=== PATIENT | female | born 1970 | race Caucasian/White ===

== ENCOUNTER → 2017-01-25 | Outpatient (CLI) | payer MEDICAID ==
[~2017-01-25] MED LIST: BUSP10TA PO; ESCI20TA10 PO; HYDR-3240 PO; HYDR25TA6 PO; LAMO200T5 PO; LORA1TAB PO; ZOLP5TAB6 PO
== END | disposition home or self-care (01) ==
LOC: CARD 14:24
PROVIDERS: ATTEND Allergy & Immunology Allergy
DX: J44.9 Chronic obstructive pulmonary disease, unspecified (principal); J45.31 Mild persistent asthma with (acute) exacerbation
CPT/HCPCS: 94060; 94726; 94729

== ENCOUNTER 2017-05-19 11:32 | Emergency (ER) | payer MEDICAID ==
[~2017-05-19] VITALS: Ht 170.2 cm; Wt 90.0 kg
[2017-05-19 11:43] VITALS: BP 162/79
[2017-05-19] MEDS ORDERED: LURA20TA PO (12:26)
[2017-05-19 13:35] LABS: BASOPHILS % (AUTO) 0 % (0-1); EOSINOPHILS # (AUTO) 0.05 x10^3/uL (0-0.4); EOSINOPHILS % (AUTO) 0 % (1-7); LYMPHOCYTES # (AUTO) 2.51 x10^3/uL (1-3.4); LYMPHOCYTES % (AUTO) 24 % (22-44); MD NO; MEAN CORPUSCULAR HEMOGLOBIN 33.1 pg (27.0-34.8); MEAN CORPUSCULAR HGB CONC 34.5 g/dL (32.4-35.8); MEAN CORPUSCULAR VOLUME 95.9 fL (80-100); MEAN PLATELET VOLUME 7.8 fL (7.4-10.4); MONOCYTES % (AUTO) 8 % (2-9); NEUTROPHILS # (AUTO) 7.12 x10^3/uL (1.8-6.8); NEUTROPHILS % (AUTO) 68 % (42-75); PLATELET COUNT 292 x10^3/uL (130-400); RED BLOOD COUNT 4.47 x10^6/uL (3.82-5.3); RED CELL DISTRIBUTION WIDTH 13.1 % (9.6-15.2)
[2017-05-19 13:47] LABS: ALBUMIN 3.6 g/dL (3.4-5.0); ANION GAP 9 mmol/L (5-15); CALCIUM 8.8 mg/dL (8.5-10.1); CHLORIDE 104 mmol/L (98-107)
== END 2017-05-19 14:24 | disposition home or self-care (01) ==
LOC: ED 13:39
DX: G24.09 Other drug induced dystonia (principal); T42.4X5A Adverse effect of benzodiazepines, initial encounter; I10 Essential (primary) hypertension; F31.9 Bipolar disorder, unspecified; F41.9 Anxiety disorder, unspecified; J45.909 Unspecified asthma, uncomplicated; Y92.89 Other specified places as the place of occurrence of the external cause
CPT/HCPCS: 36415; 70450; 80048; 82040; 85025; 93005

== ENCOUNTER 2018-05-31 21:40 | Inpatient (IN) | payer MEDICAID ==
[~2018-05-31] VITALS: Ht 162.6 cm; Wt 109.7 kg
[~2018-05-31 21:40] MED LIST changes: +LURA20TA PO
--- NOTE | 2018-05-31 22:02 | NUR ---
PT BIB MOTHER. STATES FRIEND TODAY AND PT HAVING TOUGH TIME COPING. STATES DRINKING 6 BEERS AND TAKING A TOTAL OF 15 XANAX. MOTHER STATES PILL BOTTLE WAS NOT EMPTY AND PT DENIES SI TONIGHT. PT SLURRING WORDS AND SLUGGISH TO RESPOND TO QUESTIONS. PT IS A+Ox4. PUPILS SLUGGISH REACTION, BUT PERRLA. NEURO OTHERWISE INTACT. IV INITIATED AND ALL MONITORING APPLIED. VSS. CALL LIGHT WITHIN REACH. FAMILY AT BEDSIDE.
[2018-05-31 22:19] LABS: BASOPHILS # (AUTO) 0.05 x10^3/uL (0-0.1); BASOPHILS % (AUTO) 1 % (0-1); EOSINOPHILS # (AUTO) 0.38 x10^3/uL (0-0.4); EOSINOPHILS % (AUTO) 4 % (1-7); LYMPHOCYTES # (AUTO) 4.84 x10^3/uL (1-3.4); LYMPHOCYTES % (AUTO) 45 % (22-44); MD NO; MEAN CORPUSCULAR HEMOGLOBIN 32.5 pg (27.0-34.8); MEAN CORPUSCULAR HGB CONC 33.6 g/dL (32.4-35.8); MEAN CORPUSCULAR VOLUME 96.6 fL (80-100); MEAN PLATELET VOLUME 7.9 fL (7.4-10.4); MONOCYTES # (AUTO) 0.98 x10^3/uL (0.2-0.8); MONOCYTES % (AUTO) 9 % (2-9); NEUTROPHILS % (AUTO) 41 % (42-75); PLATELET COUNT 303 x10^3/uL (130-400); RED BLOOD COUNT 4.95 x10^6/uL (3.82-5.3); RED CELL DISTRIBUTION WIDTH 12.3 % (9.6-15.2)
[2018-05-31 22:31] LABS: ALANINE AMINOTRANSFERASE 51 U/L (12-78); ALBUMIN 3.6 g/dL (3.4-5.0); ANION GAP 9 mmol/L (5-15); CALCIUM 8.6 mg/dL (8.5-10.1); CHLORIDE 99 mmol/L (98-107); CREATININE 0.63 mg/dL (0.55-1.02); SALICYLATE LEVEL 1.8 mg/dL (2.8-20.0)
--- NOTE | 2018-05-31 22:34 | NUR ---
PT DESAT WHILE FALLING ASLEEP TO MID 80'S. PT PUT ON 2 L NC AND SAT TO 92-96%.
[2018-05-31 22:35] LABS: ALKALINE PHOSPHATASE 99 U/L (45-117); BILIRUBIN,TOTAL 0.3 mg/dL (0.2-1.0); TOTAL PROTEIN 8.2 g/dL (6.4-8.2)
[2018-05-31 22:36] LABS: ACETAMINOPHEN < 2 mcg/mL (10-30)
--- NOTE | 2018-05-31 23:55 | NUR ---
PT STATES DIFFICULTY FALLING ASLEEP AND "WOULD LIKE A SLEEP AID". MD NOTIFIED. NO NEW ORDERS. LIGHTS TURNED LOW AND COMFORT MEASURES APPLIED.
--- NOTE | 2018-06-01 00:10 | NUR ---
PT STATING SHE CANT SLEEP AND SHE WANTS A SLEEPING AID, AND SHE IS HAVING AN ANXIETY ATTACK AND NEEDS XANAX. MD NOTIFIED. NO NEW ORDERS FROM MD. PT NOTIFIED OF MD DECISION AND PT STATES "WHY NOT? I AM ON ALL THIS MONITORING EQUIPMENT. CANT I JUST HAVE 1?" PT EDUCATED ON RISK OF OD, PT STILL INSISTING ON WANTING MORE MEDICATION, XANAX IN PARTICULAR.
[2018-06-01] MEDS ORDERED: ALPR1TAB2 PO (00:18)
[2018-06-01] MEDS ORDERED: ONDANSETRON ODT 4 MG PO PRN ×2 (01:00→04:00)
[2018-06-01] MEDS ORDERED: ACETAMINOPHEN 325 MG TABLET PO PRN (01:00)
[2018-06-01 01:20] VITALS: BP 129/91
[2018-06-01 02:05] LABS: AMPHETAMINE SCREEN, URINE Negative (Negative); BARBITURATE SCREEN, URINE Negative (Negative); BENZODIAZEPINE SCREEN, URINE Positive (Negative); CANNABINOID SCREEN, URINE Negative (Negative); COCAINE SCREEN, URINE Negative (Negative); METHADONE SCREEN, URINE Negative (Negative); OPIATE SCREEN, URINE Negative (Negative)
[2018-06-01] MEDS ORDERED: MELATONIN 5 MG TABLET PO ONE (04:00)
[2018-06-01] MEDS ORDERED: ONDANSETRON 2MG/ML, 2ML IVPush PRN (04:00)
[2018-06-01] MEDS: ENOXAPARIN 40 MG/0.4 ML SQ SCH (04:11)
[2018-06-01 04:12] VITALS: BP 102/67
[2018-06-01] MEDS ORDERED: HYDROCHLOROTHIAZIDE 25 MG TABLET PO PRN (05:00)
[2018-06-01] MEDS: BUSPIRONE 10 MG TABLET PO SCH ×4 (06:00→22:38)
[2018-06-01 07:52] VITALS: BP 126/82
[2018-06-01] MEDS ORDERED: TEMPLATE NON-FORMULARY MED. (Escitalopram Oxalate** (Lexapro**) 20 MG) HOMEMEDPO SCH (09:00)
[2018-06-01] MEDS: ACETAMINOPHEN 325 MG TABLET PO PRN ×2 (12:00→22:39)
[2018-06-01 15:40] VITALS: BP 120/84
[2018-06-01] MEDS: PROPRANOLOL 40 MG TABLET PO SCH (18:36)
[2018-06-01 19:20] VITALS: BP 119/79
[2018-06-01] MEDS ORDERED: ESCI10TA PO (19:52)
[2018-06-01] MEDS ORDERED: MONT10TA9 PO (19:52)
[2018-06-01] MEDS ORDERED: LURA120T PO (19:52)
[2018-06-01] MEDS ORDERED: TRAZ50TA66 PO (19:52)
[2018-06-01] MEDS ORDERED: RANI150T4 PO (19:52)
[2018-06-01] MEDS ORDERED: LURA80TA PO (20:15)
[2018-06-01] MEDS ORDERED: ALBU18HF INH (20:19)
[2018-06-01] MEDS ORDERED: ESCITALOPRAM OXALATE 30 MG HOMEMEDPO SCH (21:00)
[2018-06-01] MEDS ORDERED: LATUDA 80 MG HOMEMEDPO SCH (21:00)
[2018-06-01] MEDS ORDERED: LURASIDONE 20 MG TABLET HOMEMEDPO SCH (21:00)
[2018-06-01] MEDS ORDERED: TRAZODONE 50MG TABLET PO SCH (21:00)
[2018-06-01] MEDS ORDERED: LURASIDONE PO SCH (21:00)
[2018-06-01] MEDS ORDERED: ESCITALOPRAM OXALATE 20 MG HOMEMEDPO SCH ×2 (21:13→22:30)
[2018-06-02 03:55] VITALS: BP 113/77
[2018-06-02] MEDS: ENOXAPARIN 40 MG/0.4 ML SQ SCH (03:59)
[2018-06-02] MEDS: PROPRANOLOL 40 MG TABLET PO SCH (05:06)
[2018-06-02 07:03] VITALS: BP 110/74
[2018-06-02] MEDS: BUSPIRONE 10 MG TABLET PO SCH (08:30)
[2018-06-02] MEDS ORDERED: FAMOTIDINE 20 MG TABLET PO SCH (09:00)
[2018-06-02] MEDS ORDERED: VENTOLIN HOMEMEDPO SCH (09:00)
[2018-06-02] MEDS ORDERED: MONTELUKAST 10 MG TABLET PO SCH (09:00)
[2018-06-02 15:08] VITALS: BP 114/80
== END 2018-06-02 15:59 | disposition home or self-care (01) | DRG 917 ==
LOC: ED 22:15 → EDIP 06-01 00:43 → 4WST 06-01 01:12
PROVIDERS: ADMIT Student in an Organized Health Care Education/Training Program; ATTEND Student in an Organized Health Care Education/Training Program
DX: T42.4X1A Poisoning by benzodiazepines, accidental (unintentional), initial encounter (principal); G92 Toxic encephalopathy; J44.9 Chronic obstructive pulmonary disease, unspecified; T51.92XA Toxic effect of unspecified alcohol, intentional self-harm, initial encounter; I25.10 Atherosclerotic heart disease of native coronary artery without angina pectoris; F41.0 Panic disorder [episodic paroxysmal anxiety]; E10.9 Type 1 diabetes mellitus without complications; F31.9 Bipolar disorder, unspecified; F41.1 Generalized anxiety disorder; I11.0 Hypertensive heart disease with heart failure; I50.9 Heart failure, unspecified; Z79.4 Long term (current) use of insulin; Z79.899 Other long term (current) drug therapy; Z90.5 Acquired absence of kidney; Y92.89 Other specified places as the place of occurrence of the external cause; Z88.1 Allergy status to other antibiotic agents; Z88.8 Allergy status to other drugs, medicaments and biological substances; Z83.3 Family history of diabetes mellitus; Z82.49 Family history of ischemic heart disease and other diseases of the circulatory system; Z84.89 Family history of other specified conditions; Z80.9 Family history of malignant neoplasm, unspecified
CPT/HCPCS: 36415; 80053; 80307; 80329; 84703; 85025; 93005; 99285; G0378; J1650; G0480

== ENCOUNTER 2018-08-04 12:07 | Inpatient (IN) | payer MEDICAID ==
[~2018-08-04] VITALS: Ht 165.1 cm; Wt 107.2 kg
[~2018-08-04 12:07] MED LIST changes: +ALBU18HF INH; +ALPR1TAB2 PO; +ESCI10TA PO; +LURA120T PO; +LURA80TA PO; +MONT10TA9 PO; +RANI150T4 PO; +TRAZ50TA66 PO
[2018-08-04] MEDS ORDERED: ONDANSETRON 2MG/ML, 2ML IVPush ONE (12:30)
[2018-08-04] MEDS ORDERED: SODIUM CHLORIDE FLUSH 10ML SYR IVF ONE (12:30)
[2018-08-04 12:48] LABS: MEAN CORPUSCULAR HEMOGLOBIN 32.4 pg (27.0-34.8); MEAN CORPUSCULAR HGB CONC 33.9 g/dL (32.4-35.8); MEAN CORPUSCULAR VOLUME 95.4 fL (80-100); MEAN PLATELET VOLUME 7.5 fL (7.4-10.4); PLATELET COUNT 401 x10^3/uL (130-400); RED BLOOD COUNT 4.73 x10^6/uL (3.82-5.3); RED CELL DISTRIBUTION WIDTH 12.9 % (9.6-15.2)
[2018-08-04] MEDS ORDERED: ONDANSETRON 2MG/ML, 2ML ONE (12:52)
[2018-08-04] MEDS ORDERED: HYDROmorphone 1 MG/ML, 1ML AMP ONE ×2 (12:52→14:38)
[2018-08-04] MEDS: HYDROmorphone 2 MG/ML, 1ML IVPush PRN ×2 (12:58→14:42)
[2018-08-04 13:01] LABS: ALBUMIN 3.3 g/dL (3.4-5.0); ANION GAP 5 mmol/L (5-15); CALCIUM 9.2 mg/dL (8.5-10.1); CHLORIDE 98 mmol/L (98-107); CREATININE 0.83 mg/dL (0.55-1.02)
[2018-08-04 13:09] LABS: BASOPHILS # (AUTO) 0.07 x10^3/uL (0-0.1); BASOPHILS % (AUTO) 0 % (0-1); EOSINOPHILS # (AUTO) 0.05 x10^3/uL (0-0.4); EOSINOPHILS % (AUTO) 0 % (1-7); LYMPHOCYTES # (AUTO) 1.86 x10^3/uL (1-3.4); LYMPHOCYTES % (AUTO) 11 % (22-44); MD SCAN; MONOCYTES # (AUTO) 1.02 x10^3/uL (0.2-0.8); MONOCYTES % (AUTO) 6 % (2-9); NEUTROPHILS # (AUTO) 14.14 x10^3/uL (1.8-6.8); NEUTROPHILS % (AUTO) 83 % (42-75)
[2018-08-04 13:28] LABS: CULTURE INDICATED? NO; MICROSCOPIC NOT IND
[2018-08-04] MEDS ORDERED: CEFTRIAXONE PMX 1GM/50ML 50 ML ONE (14:38)
[2018-08-04] MEDS ORDERED: OMNIPAQUE 350 MG/ML, 100ML BOTTLE ONE (14:47)
[2018-08-04] MEDS ORDERED: CEFTRIAXONE PMX 1GM/50ML 50 ML IV ONE (15:00)
[2018-08-04] MEDS ORDERED: METRONIDAZOLE PMX 500MG/100ML 100 ML IV ONE (15:00)
[2018-08-04] MEDS ORDERED: hydrALAzine 20 MG/ML, 1ML IVPush PRN (15:30)
[2018-08-04] MEDS ORDERED: LABETALOL 5 MG/ML SYRINGE IVPush PRN (15:30)
[2018-08-04] MEDS ORDERED: ACETAMINOPHEN 325 MG TABLET PO PRN (15:30)
[2018-08-04] MEDS ORDERED: BISACODYL 10 MG SUPP PR PRN (15:30)
[2018-08-04] MEDS ORDERED: ENALAPRILAT 1.25 MG/ML, 2ML IVPush PRN (15:30)
[2018-08-04] MEDS ORDERED: METRONIDAZOLE PMX 500MG/100ML 100 ML ONE (16:34)
[2018-08-04] MEDS ORDERED: ENOXAPARIN 40 MG/0.4 ML ONE (16:34)
[2018-08-04] MEDS: ENOXAPARIN 40 MG/0.4 ML SQ SCH (16:48)
[2018-08-04] MEDS ORDERED: HYDROcodone/APAP 5/325 TABLET ONE (17:34)
[2018-08-04] MEDS: HYDROcodone/APAP 5/325 TABLET PO PRN ×2 (17:37→21:54)
[2018-08-04] MEDS ORDERED: PIPERACILLIN/TAZO/PMX 3.375GM 50 ML ONE (19:04)
[2018-08-04] MEDS: PIPERACILLIN/TAZO/PMX 3.375GM 50 ML IV SCH ×2 (19:07→20:41)
--- NOTE | 2018-08-04 19:47 | NUR ---
PT PROVIDED WITH A CLEAR LIQUID MEAL TRAY.
[2018-08-04 21:15] VITALS: BP 108/74
[2018-08-04] MEDS: LURASIDONE 20 MG TABLET PO SCH (21:53)
[2018-08-04] MEDS: NS + 20MEQ KCL 1,000 ML IV SCH (21:53)
[2018-08-04] MEDS: ESCITALOPRAM 10MG TABLET PO SCH (21:54)
[2018-08-04] MEDS: FAMOTIDINE 20 MG TABLET PO SCH (21:54)
[2018-08-04] MEDS: BUSPIRONE 10 MG TABLET PO SCH (21:54)
[2018-08-04 22:43] LABS: CLOSTRIDIUM DIFFICILE ANTIGEN NEGATIVE; CLOSTRIDIUM DIFFICILE TOXIN NEGATIVE (Negative)
[2018-08-05 00:50] VITALS: BP 106/72
[2018-08-05] MEDS: HYDROcodone/APAP 5/325 TABLET PO PRN ×6 (02:11→23:57)
[2018-08-05] MEDS: IBUPROFEN 600 MG TABLET PO PRN ×3 (02:15→21:49)
[2018-08-05] MEDS: PIPERACILLIN/TAZO/PMX 3.375GM 50 ML IV SCH (03:17)
[2018-08-05 05:12] LABS: MEAN CORPUSCULAR HEMOGLOBIN 32.1 pg (27.0-34.8); MEAN CORPUSCULAR HGB CONC 33.6 g/dL (32.4-35.8); MEAN CORPUSCULAR VOLUME 95.5 fL (80-100); PLATELET COUNT 328 x10^3/uL (130-400); RED BLOOD COUNT 4.12 x10^6/uL (3.82-5.3)
[2018-08-05 05:17] LABS: ANION GAP 8 mmol/L (5-15); CALCIUM 8.2 mg/dL (8.5-10.1); CHLORIDE 98 mmol/L (98-107); CREATININE 0.65 mg/dL (0.55-1.02)
[2018-08-05 06:02] LABS: BASOPHILS # (AUTO) 0.03 x10^3/uL (0-0.1); BASOPHILS % (AUTO) 0 % (0-1); EOSINOPHILS # (AUTO) 0.05 x10^3/uL (0-0.4); EOSINOPHILS % (AUTO) 0 % (1-7); LYMPHOCYTES % (AUTO) 10 % (22-44); MD SCAN; MONOCYTES # (AUTO) 1.64 x10^3/uL (0.2-0.8); MONOCYTES % (AUTO) 9 % (2-9); NEUTROPHILS # (AUTO) 14.92 x10^3/uL (1.8-6.8); NEUTROPHILS % (AUTO) 81 % (42-75)
[2018-08-05] MEDS: NS + 20MEQ KCL 1,000 ML IV SCH ×2 (06:05→19:41)
[2018-08-05 08:02] VITALS: BP 94/60
[2018-08-05] MEDS: PIPERACILLIN/TAZO/PMX 4.5GM 100 ML IV SCH ×3 (09:38→20:49)
[2018-08-05] MEDS: BUSPIRONE 10 MG TABLET PO SCH ×2 (09:38→20:50)
[2018-08-05] MEDS: MONTELUKAST 10 MG TABLET PO SCH (09:39)
[2018-08-05] MEDS: FAMOTIDINE 20 MG TABLET PO SCH ×2 (09:39→20:50)
[2018-08-05] MEDS: ALPRazolam 1MG TAB PO SCH (09:39)
[2018-08-05] MEDS: HYDROCHLOROTHIAZIDE 25 MG TABLET PO SCH (09:39)
[2018-08-05] MEDS ORDERED: ALBUTEROL SULFATE 2.5 MG/3 ML NPPB SCH (11:00)
[2018-08-05 13:49] VITALS: BP 95/65
[2018-08-05] MEDS: ENOXAPARIN 40 MG/0.4 ML SQ SCH (15:42)
[2018-08-05] MEDS: LURASIDONE 20 MG TABLET PO SCH (20:50)
[2018-08-05] MEDS: ESCITALOPRAM 10MG TABLET PO SCH (20:50)
[2018-08-05] MEDS: BUDESONIDE 0.5 MG/2 ML INHA INH SCH (21:15)
[2018-08-05] MEDS: ALBUTEROL SULFATE 2.5 MG/3 ML NPPB SCH (21:15)
[2018-08-05 21:49] VITALS: BP 90/63
[2018-08-06] MEDS: ONDANSETRON 2MG/ML, 2ML IVPush PRN (00:01)
[2018-08-06] MEDS: PIPERACILLIN/TAZO/PMX 4.5GM 100 ML IV SCH ×5 (03:06→22:55)
[2018-08-06 03:08] VITALS: BP 90/67
[2018-08-06] MEDS: NS + 20MEQ KCL 1,000 ML IV SCH ×2 (04:14→13:46)
[2018-08-06] MEDS: HYDROcodone/APAP 5/325 TABLET PO PRN ×5 (05:19→22:19)
[2018-08-06 05:23] LABS: MEAN CORPUSCULAR HEMOGLOBIN 32.9 pg (27.0-34.8); MEAN CORPUSCULAR HGB CONC 33.8 g/dL (32.4-35.8); MEAN CORPUSCULAR VOLUME 97.4 fL (80-100); MEAN PLATELET VOLUME 7.9 fL (7.4-10.4); PLATELET COUNT 251 x10^3/uL (130-400); RED BLOOD COUNT 3.81 x10^6/uL (3.82-5.3); RED CELL DISTRIBUTION WIDTH 12.9 % (9.6-15.2)
[2018-08-06 05:26] LABS: ANION GAP 6 mmol/L (5-15); CALCIUM 8.2 mg/dL (8.5-10.1); CHLORIDE 103 mmol/L (98-107); CREATININE 0.62 mg/dL (0.55-1.02)
[2018-08-06 05:52] LABS: BASOPHILS # (AUTO) 0.02 x10^3/uL (0-0.1); BASOPHILS % (AUTO) 0 % (0-1); EOSINOPHILS # (AUTO) 0.05 x10^3/uL (0-0.4); EOSINOPHILS % (AUTO) 1 % (1-7); LYMPHOCYTES # (AUTO) 1.17 x10^3/uL (1-3.4); LYMPHOCYTES % (AUTO) 10 % (22-44); MD SCAN; MONOCYTES # (AUTO) 1.06 x10^3/uL (0.2-0.8); MONOCYTES % (AUTO) 9 % (2-9); NEUTROPHILS # (AUTO) 9.08 x10^3/uL (1.8-6.8); NEUTROPHILS % (AUTO) 80 % (42-75)
[2018-08-06 07:21] VITALS: BP 101/70
[2018-08-06] MEDS: BUDESONIDE 0.5 MG/2 ML INHA INH SCH ×2 (08:56→21:50)
[2018-08-06] MEDS: ALBUTEROL SULFATE 2.5 MG/3 ML NPPB SCH ×2 (08:56→21:50)
[2018-08-06] MEDS: ALPRazolam 1MG TAB PO SCH (09:27)
[2018-08-06] MEDS: FAMOTIDINE 20 MG TABLET PO SCH ×2 (09:27→20:59)
[2018-08-06] MEDS: BUSPIRONE 10 MG TABLET PO SCH ×2 (09:27→20:59)
[2018-08-06] MEDS: MONTELUKAST 10 MG TABLET PO SCH (09:27)
[2018-08-06] MEDS: HYDROCHLOROTHIAZIDE 25 MG TABLET PO SCH (09:27)
[2018-08-06 13:44] VITALS: BP 87/64
[2018-08-06] MEDS: ENOXAPARIN 40 MG/0.4 ML SQ SCH (15:05)
[2018-08-06] MEDS: ESCITALOPRAM 10MG TABLET PO SCH (20:59)
[2018-08-06] MEDS: LURASIDONE 20 MG TABLET PO SCH (21:00)
[2018-08-06 21:11] VITALS: BP 104/80
[2018-08-07] MEDS: HYDROcodone/APAP 5/325 TABLET PO PRN ×6 (02:33→22:53)
[2018-08-07 02:35] VITALS: BP 94/62
[2018-08-07] MEDS: NS + 20MEQ KCL 1,000 ML IV SCH ×3 (04:27→22:54)
[2018-08-07] MEDS: PIPERACILLIN/TAZO/PMX 4.5GM 100 ML IV SCH ×4 (04:27→22:54)
[2018-08-07 05:12] LABS: BASOPHILS % (AUTO) 0 % (0-1); EOSINOPHILS # (AUTO) 0.06 x10^3/uL (0-0.4); EOSINOPHILS % (AUTO) 1 % (1-7); LYMPHOCYTES # (AUTO) 2.31 x10^3/uL (1-3.4); LYMPHOCYTES % (AUTO) 36 % (22-44); MD NO; MEAN CORPUSCULAR HGB CONC 33.2 g/dL (32.4-35.8); MEAN CORPUSCULAR VOLUME 96.3 fL (80-100); MEAN PLATELET VOLUME 7.9 fL (7.4-10.4); MONOCYTES # (AUTO) 0.89 x10^3/uL (0.2-0.8); MONOCYTES % (AUTO) 14 % (2-9); NEUTROPHILS # (AUTO) 3.17 x10^3/uL (1.8-6.8); NEUTROPHILS % (AUTO) 49 % (42-75); PLATELET COUNT 280 x10^3/uL (130-400); RED BLOOD COUNT 3.53 x10^6/uL (3.82-5.3); RED CELL DISTRIBUTION WIDTH 12.9 % (9.6-15.2)
[2018-08-07 05:14] LABS: ANION GAP 6 mmol/L (5-15); CALCIUM 8.1 mg/dL (8.5-10.1); CHLORIDE 103 mmol/L (98-107); CREATININE 0.57 mg/dL (0.55-1.02)
[2018-08-07 08:40] VITALS: BP 118/84
[2018-08-07] MEDS: ALBUTEROL SULFATE 2.5 MG/3 ML NPPB SCH ×2 (08:48→20:51)
[2018-08-07] MEDS: BUDESONIDE 0.5 MG/2 ML INHA INH SCH ×2 (08:48→20:51)
[2018-08-07] MEDS: HYDROCHLOROTHIAZIDE 25 MG TABLET PO SCH (09:02)
[2018-08-07] MEDS: POTASSIUM CHLORIDE 20 MEQ TAB.ER.PRT PO SCH ×2 (09:02→17:14)
[2018-08-07] MEDS: MONTELUKAST 10 MG TABLET PO SCH (09:02)
[2018-08-07] MEDS: ALPRazolam 1MG TAB PO SCH (09:02)
[2018-08-07] MEDS: BUSPIRONE 10 MG TABLET PO SCH ×2 (09:03→21:36)
[2018-08-07] MEDS: FAMOTIDINE 20 MG TABLET PO SCH ×2 (09:03→21:34)
[2018-08-07 13:49] VITALS: BP 126/82
[2018-08-07] MEDS: ENOXAPARIN 40 MG/0.4 ML SQ SCH (15:30)
[2018-08-07 20:54] VITALS: BP 110/73
[2018-08-07] MEDS: ESCITALOPRAM 10MG TABLET PO SCH (21:30)
[2018-08-07] MEDS: LURASIDONE 20 MG TABLET PO SCH (21:31)
[2018-08-08 02:22] VITALS: BP 108/69
[2018-08-08] MEDS: HYDROcodone/APAP 5/325 TABLET PO PRN ×5 (02:59→19:59)
[2018-08-08] MEDS: PIPERACILLIN/TAZO/PMX 4.5GM 100 ML IV SCH ×4 (05:22→22:06)
[2018-08-08 06:04] LABS: BASOPHILS # (AUTO) 0.01 x10^3/uL (0-0.1); BASOPHILS % (AUTO) 0 % (0-1); EOSINOPHILS # (AUTO) 0.08 x10^3/uL (0-0.4); EOSINOPHILS % (AUTO) 2 % (1-7); LYMPHOCYTES # (AUTO) 1.99 x10^3/uL (1-3.4); LYMPHOCYTES % (AUTO) 38 % (22-44); MD NO; MEAN CORPUSCULAR HEMOGLOBIN 32.9 pg (27.0-34.8); MEAN CORPUSCULAR HGB CONC 34.1 g/dL (32.4-35.8); MEAN CORPUSCULAR VOLUME 96.2 fL (80-100); MONOCYTES # (AUTO) 0.65 x10^3/uL (0.2-0.8); MONOCYTES % (AUTO) 12 % (2-9); NEUTROPHILS # (AUTO) 2.56 x10^3/uL (1.8-6.8); NEUTROPHILS % (AUTO) 48 % (42-75); PLATELET COUNT 321 x10^3/uL (130-400); RED BLOOD COUNT 3.57 x10^6/uL (3.82-5.3); RED CELL DISTRIBUTION WIDTH 13.3 % (9.6-15.2)
[2018-08-08 06:14] LABS: ANION GAP 7 mmol/L (5-15); CALCIUM 8.5 mg/dL (8.5-10.1); CHLORIDE 108 mmol/L (98-107); CREATININE 0.52 mg/dL (0.55-1.02)
[2018-08-08] MEDS: NS + 20MEQ KCL 1,000 ML IV SCH ×3 (06:53→22:06)
[2018-08-08] MEDS: MONTELUKAST 10 MG TABLET PO SCH (08:50)
[2018-08-08] MEDS: HYDROCHLOROTHIAZIDE 25 MG TABLET PO SCH (08:50)
[2018-08-08] MEDS: BUSPIRONE 10 MG TABLET PO SCH ×2 (08:50→22:07)
[2018-08-08] MEDS: FAMOTIDINE 20 MG TABLET PO SCH ×2 (08:50→22:07)
[2018-08-08] MEDS: POTASSIUM CHLORIDE 20 MEQ TAB.ER.PRT PO SCH ×2 (08:50→17:24)
[2018-08-08] MEDS: ALPRazolam 1MG TAB PO SCH (08:50)
[2018-08-08] MEDS: BUDESONIDE 0.5 MG/2 ML INHA INH SCH ×2 (09:00→21:05)
[2018-08-08] MEDS: ALBUTEROL SULFATE 2.5 MG/3 ML NPPB SCH ×2 (09:00→21:05)
[2018-08-08 09:28] VITALS: BP 103/69
[2018-08-08] MEDS: ENOXAPARIN 40 MG/0.4 ML SQ SCH (15:36)
[2018-08-08 17:58] VITALS: BP 126/85
[2018-08-08 20:06] VITALS: BP 132/85
[2018-08-08] MEDS: ESCITALOPRAM 10MG TABLET PO SCH (22:07)
[2018-08-08] MEDS: LURASIDONE 20 MG TABLET PO SCH (22:07)
[2018-08-08] MEDS: ONDANSETRON 2MG/ML, 2ML IVPush PRN (23:37)
[2018-08-09] MEDS: HYDROcodone/APAP 5/325 TABLET PO PRN ×6 (00:10→21:46)
[2018-08-09 01:54] VITALS: BP_SYST 102
[2018-08-09] MEDS: NS + 20MEQ KCL 1,000 ML IV SCH (05:20)
[2018-08-09] MEDS: PIPERACILLIN/TAZO/PMX 4.5GM 100 ML IV SCH ×2 (05:20→11:32)
[2018-08-09 05:56] LABS: BASOPHILS # (AUTO) 0.03 x10^3/uL (0-0.1); BASOPHILS % (AUTO) 1 % (0-1); EOSINOPHILS % (AUTO) 2 % (1-7); LYMPHOCYTES # (AUTO) 1.91 x10^3/uL (1-3.4); LYMPHOCYTES % (AUTO) 33 % (22-44); MD NO; MEAN CORPUSCULAR HEMOGLOBIN 32.8 pg (27.0-34.8); MEAN CORPUSCULAR HGB CONC 33.8 g/dL (32.4-35.8); MONOCYTES # (AUTO) 0.62 x10^3/uL (0.2-0.8); MONOCYTES % (AUTO) 11 % (2-9); NEUTROPHILS # (AUTO) 3.07 x10^3/uL (1.8-6.8); NEUTROPHILS % (AUTO) 54 % (42-75); PLATELET COUNT 325 x10^3/uL (130-400); RED BLOOD COUNT 3.47 x10^6/uL (3.82-5.3); RED CELL DISTRIBUTION WIDTH 13.1 % (9.6-15.2)
[2018-08-09] MEDS: BUDESONIDE 0.5 MG/2 ML INHA INH SCH ×2 (07:23→21:35)
[2018-08-09] MEDS: ALBUTEROL SULFATE 2.5 MG/3 ML NPPB SCH ×2 (07:23→21:35)
[2018-08-09 08:29] VITALS: BP 127/80
[2018-08-09] MEDS: BUSPIRONE 10 MG TABLET PO SCH ×2 (08:40→21:37)
[2018-08-09] MEDS: ALPRazolam 1MG TAB PO SCH (08:41)
[2018-08-09] MEDS: HYDROCHLOROTHIAZIDE 25 MG TABLET PO SCH (08:41)
[2018-08-09] MEDS: MONTELUKAST 10 MG TABLET PO SCH (08:41)
[2018-08-09] MEDS: POTASSIUM CHLORIDE 20 MEQ TAB.ER.PRT PO SCH ×2 (08:41→16:58)
[2018-08-09] MEDS: FAMOTIDINE 20 MG TABLET PO SCH ×2 (08:41→21:37)
[2018-08-09 14:31] VITALS: BP 147/84
[2018-08-09] MEDS: metroNIDAZOLE 500 MG TABLET PO SCH ×2 (15:17→22:55)
[2018-08-09 20:41] VITALS: BP 154/97
[2018-08-09] MEDS: AMOXICILLIN/CLAV 875-125MG TABLET PO SCH (21:37)
[2018-08-09] MEDS: ESCITALOPRAM 10MG TABLET PO SCH (21:37)
[2018-08-09] MEDS: LURASIDONE 20 MG TABLET PO SCH (22:26)
[2018-08-10 01:30] VITALS: BP 143/93
[2018-08-10] MEDS: HYDROcodone/APAP 5/325 TABLET PO PRN ×3 (03:49→12:45)
[2018-08-10] MEDS ORDERED: ENOXAPARIN 30 MG/0.3 ML SQ SCH (06:00)
[2018-08-10] MEDS: metroNIDAZOLE 500 MG TABLET PO SCH (06:14)
[2018-08-10] MEDS: BUDESONIDE 0.5 MG/2 ML INHA INH SCH (07:20)
[2018-08-10] MEDS: ALBUTEROL SULFATE 2.5 MG/3 ML NPPB SCH (07:20)
[2018-08-10] MEDS: HYDROCHLOROTHIAZIDE 25 MG TABLET PO SCH (07:38)
[2018-08-10] MEDS: MONTELUKAST 10 MG TABLET PO SCH (07:38)
[2018-08-10] MEDS: BUSPIRONE 10 MG TABLET PO SCH (07:38)
[2018-08-10] MEDS: POTASSIUM CHLORIDE 20 MEQ TAB.ER.PRT PO SCH (07:39)
[2018-08-10] MEDS: ALPRazolam 1MG TAB PO SCH (07:39)
[2018-08-10] MEDS: FAMOTIDINE 20 MG TABLET PO SCH (07:39)
[2018-08-10] MEDS: AMOXICILLIN/CLAV 875-125MG TABLET PO SCH (07:39)
[2018-08-10 07:48] LABS: ANION GAP 5 mmol/L (5-15); CHLORIDE 106 mmol/L (98-107); CREATININE 0.73 mg/dL (0.55-1.02)
[2018-08-10 07:50] LABS: BASOPHILS # (AUTO) 0.01 x10^3/uL (0-0.1); BASOPHILS % (AUTO) 0 % (0-1); EOSINOPHILS # (AUTO) 0.14 x10^3/uL (0-0.4); EOSINOPHILS % (AUTO) 2 % (1-7); LYMPHOCYTES % (AUTO) 29 % (22-44); MD NO; MEAN CORPUSCULAR HEMOGLOBIN 32.1 pg (27.0-34.8); MEAN CORPUSCULAR HGB CONC 33.4 g/dL (32.4-35.8); MEAN CORPUSCULAR VOLUME 96.1 fL (80-100); MEAN PLATELET VOLUME 7.6 fL (7.4-10.4); MONOCYTES # (AUTO) 0.48 x10^3/uL (0.2-0.8); MONOCYTES % (AUTO) 7 % (2-9); NEUTROPHILS # (AUTO) 4.36 x10^3/uL (1.8-6.8); NEUTROPHILS % (AUTO) 62 % (42-75); PLATELET COUNT 384 x10^3/uL (130-400); RED BLOOD COUNT 3.74 x10^6/uL (3.82-5.3); RED CELL DISTRIBUTION WIDTH 13.1 % (9.6-15.2)
[2018-08-10 09:11] VITALS: BP 106/71
[2018-08-10 12:41] VITALS: BP 132/77
[2018-08-10] MEDS ORDERED: AMOX1TAB12 PO (12:49)
[2018-08-10] MEDS ORDERED: METR500T PO (12:49)
== END 2018-08-10 15:08 | disposition home or self-care (01) | DRG 392 ==
LOC: ED 13:14 → EDIP 14:54 → 4NOR 21:10 → DCLOUNGE 08-10 14:53
PROVIDERS: ADMIT Family Medicine; ATTEND Family Medicine
DX: K57.20 Diverticulitis of large intestine with perforation and abscess without bleeding (principal); E44.1 Mild protein-calorie malnutrition; E87.1 Hypo-osmolality and hyponatremia; F31.9 Bipolar disorder, unspecified; F41.1 Generalized anxiety disorder; I11.0 Hypertensive heart disease with heart failure; I50.9 Heart failure, unspecified; F32.9 Major depressive disorder, single episode, unspecified; K59.00 Constipation, unspecified; Z82.49 Family history of ischemic heart disease and other diseases of the circulatory system; Z80.6 Family history of leukemia; Z68.39 Body mass index [BMI] 39.0-39.9, adult; Z84.1 Family history of disorders of kidney and ureter; Z87.891 Personal history of nicotine dependence; Z90.49 Acquired absence of other specified parts of digestive tract; Z90.5 Acquired absence of kidney
CPT/HCPCS: 36415; 99285; J7613; J7626; 74177; 80048; 81003; 82040; 83036; 84703; 85025; 87324; 94640; G0378; J0696; J1170; J1650; J2405; J2543; J3480; Q9967

== ENCOUNTER 2018-10-12 22:48 | Inpatient (IN) | payer MEDICAID ==
[~2018-10-12] VITALS: Ht 165.1 cm; Wt 95.0 kg
[~2018-10-12 22:48] MED LIST changes: +AMOX1TAB12 PO; +METR500T PO
--- NOTE | 2018-10-12 23:52 | NUR ---
PT SITTING UP ON JEMIMA CRYING SAYING "SHE WANTS TO GO HOME. I CAN'T BE ON A LEGAL I HAVE TO BE IN [place] ON SUNDAY AND WHO IS GOING TO FEED MY CAT IN THE MORNING." EXPLAINED TO PT WHAT NEEDS TO BE DONE SO SHE CAN SPEAK WITH TELEPSYCH. PT DENIES ATTEMPTING TO COMMIT SUICIDE WAS JUST TRYING TO GO TO SLEEP.
[2018-10-13 00:04] LABS: BASOPHILS # (AUTO) 0.14 x10^3/uL (0-0.1); BASOPHILS % (AUTO) 1 % (0-1); EOSINOPHILS % (AUTO) 0 % (1-7); LYMPHOCYTES # (AUTO) 3.22 x10^3/uL (1-3.4); LYMPHOCYTES % (AUTO) 27 % (22-44); MD NO; MEAN CORPUSCULAR HGB CONC 32.5 g/dL (32.4-35.8); MEAN CORPUSCULAR VOLUME 98.4 fL (80-100); MEAN PLATELET VOLUME 7.4 fL (7.4-10.4); MONOCYTES # (AUTO) 0.68 x10^3/uL (0.2-0.8); MONOCYTES % (AUTO) 6 % (2-9); NEUTROPHILS # (AUTO) 7.77 x10^3/uL (1.8-6.8); NEUTROPHILS % (AUTO) 66 % (42-75); PLATELET COUNT 403 x10^3/uL (130-400); RED BLOOD COUNT 4.84 x10^6/uL (3.82-5.3); RED CELL DISTRIBUTION WIDTH 13.7 % (9.6-15.2)
--- NOTE | 2018-10-13 00:10 | NUR ---
PT REMOVED [employer] ALONG WITH IV. WAS STOPPED AT DOORWAY WHERE PT WAS ATTEMPTING TO GO HOME. SECURITY WAS CALLED AND PT WAS REDIRECTED TO BED. PHYSICIAN AT BEDSIDE AND UPDATED PT ON PLAN OF CARE. REJI NOEL WAS GIVEN.
[2018-10-13 00:12] LABS: ALBUMIN 3.4 g/dL (3.4-5.0); ANION GAP 11 mmol/L (5-15); CALCIUM 8.9 mg/dL (8.5-10.1); CHLORIDE 102 mmol/L (98-107)
[2018-10-13 00:16] LABS: ALANINE AMINOTRANSFERASE 29 U/L (12-78); ALKALINE PHOSPHATASE 112 U/L (45-117); BILIRUBIN,TOTAL 0.2 mg/dL (0.2-1.0); CREATININE 0.63 mg/dL (0.55-1.02); TOTAL PROTEIN 8.3 g/dL (6.4-8.2)
[2018-10-13 00:18] LABS: ACETAMINOPHEN < 2 mcg/mL (10-30); SALICYLATE LEVEL < 1.7 mg/dL (2.8-20.0)
--- NOTE | 2018-10-13 00:20 | NUR ---
manager military: pt medicated per mar for anxiety and agitation. security at bs for pt and staff safety.
--- NOTE | 2018-10-13 00:24 | NUR ---
PT RESTING IN GURNEY, SITTER AT BEDSIDE. PT CRYING WANTING TO GO HOME.
[2018-10-13] MEDS ORDERED: ZIPRASIDONE 20 MG INJ IM ONE ×2 (00:30)
--- NOTE | 2018-10-13 00:37 | NUR ---
PT HAS 1 BELONGINGS BAG PLACED IN LOCKER.
--- NOTE | 2018-10-13 00:54 | NUR ---
PT GIVEN SANDWICH. SITTER AT BEDSIDE.
--- NOTE | 2018-10-13 01:57 | NUR ---
PT SLEEPING. SITTER AT DOORWAY. VSS
[2018-10-13] MEDS ORDERED: POTASSIUM CHLORIDE 20 MEQ TAB.ER.PRT PO ONE (02:30)
[2018-10-13] MEDS ORDERED: HYDROCHLOROTHIAZIDE 25 MG TABLET PO PRN (02:30)
[2018-10-13] MEDS ORDERED: POTASSIUM CHLORIDE 20 MEQ TAB.ER.PRT ONE (02:53)
[2018-10-13 03:28] LABS: AMPHETAMINE SCREEN, URINE Negative (Negative); BARBITURATE SCREEN, URINE Negative (Negative); BENZODIAZEPINE SCREEN, URINE Positive (Negative); CANNABINOID SCREEN, URINE Negative (Negative); COCAINE SCREEN, URINE Negative (Negative); METHADONE SCREEN, URINE Negative (Negative); OPIATE SCREEN, URINE Negative (Negative)
--- NOTE | 2018-10-13 03:30 | NUR ---
PT AMBULATED TO RESTROOM. URINE SAMPLE COLLECTED AND SENT. SITTER AT DOORWAY.
--- NOTE | 2018-10-13 03:35 | NUR ---
[facility] contacted on behalf of patient. Awaiting call back at this time.
--- NOTE | 2018-10-13 03:45 | NUR ---
Patient with Medicaid HPN expansion insurance. [facility] contacted, awaiting assessment at this time.
--- NOTE | 2018-10-13 04:13 | NUR ---
PT PLACED ON REGULAR BED. SITTER AT DOORWAY.
--- NOTE | 2018-10-13 05:10 | NUR ---
PT SLEEPING. SITTER AT DOORWAY.
--- NOTE | 2018-10-13 06:00 | NUR ---
PT SLEEPING. AROUSES TO VOICE. BREAKFAST TRAY ORDERED. SITTER AT DOORWAY.
--- NOTE | 2018-10-13 07:29 | NUR ---
Late note entry for 0645: Received bedside report from CORA Pal. Assuming care of pt at this time. Pt sleeping on hospital bed. Pt has unlabored respirations with even chest rise and fall. Three bed rails up for safety measures. Room secured for SI precautions. Sitter near doorway in direct line of sight for observation. Breakfast tray ordered.
--- NOTE | 2018-10-13 07:59 | NUR ---
Abigail Vaughan, pt's therapist, called asking for updates of pt's plan of care and pt's condition. Abigail Vaughan states, "I am worried because she was suppose to fly to [facility] today for an orthopedic surgeon consult. I don't know how she thought she was going to get there after taking a large overdose of medicaiton. Her mother is in [place]. Someone needs to contact her mother."
--- NOTE | 2018-10-13 08:02 | NUR ---
[facility] at bedside. NADN. Sitter near doorway in direct line of sight for observation.
[2018-10-13] MEDS ORDERED: BUSPIRONE 10 MG TABLET PO SCH (09:00)
[2018-10-13] MEDS ORDERED: MONTELUKAST 10 MG TABLET PO SCH (09:00)
[2018-10-13] MEDS ORDERED: TEMPLATE NON-FORMULARY MED. (Albuterol Sulfate (Ventolin Hfa) 18 GM) INH SCH (09:00)
[2018-10-13] MEDS ORDERED: TEMPLATE NON-FORMULARY MED. (Ranitidine Hcl** 150 MG) PO SCH (09:00)
[2018-10-13] MEDS ORDERED: HALOPERIDOL 5 MG TABLET ONE ×2 (09:05→14:21)
[2018-10-13] MEDS ORDERED: FAMOTIDINE 20 MG TABLET PO SCH (09:07)
[2018-10-13] MEDS: HALOPERIDOL 5 MG TABLET PO PRN ×2 (09:14→14:23)
--- NOTE | 2018-10-13 09:18 | NUR ---
LATE NOTE FOR 0845: Pt received breakfast tray. NADN. No other needs requested. Sitter near doorway in direct line of sight for observation.
--- NOTE | 2018-10-13 09:22 | NUR ---
Pt requested medication for "agitation". Provided medication per EMAR. Pt appreciative. Pt denies SI and HI ideation. Pt denies pain.
[2018-10-13 09:25] VITALS: BP 119/77
[2018-10-13] MEDS ORDERED: FAMOTIDINE 20 MG TABLET ONE (09:30)
[2018-10-13] MEDS ORDERED: ALBUTEROL SULFATE 2.5 MG/3 ML HHN PRN (09:30)
--- NOTE | 2018-10-13 10:04 | NUR ---
2ND CALL PLACED TO [facility] FOR EVAL ETA
--- NOTE | 2018-10-13 10:28 | NUR ---
Case #[id number] CORA Solorzano from Poison control center called and requested update on pt. Per CORA Solorzano, this case is now "closed".
--- NOTE | 2018-10-13 10:31 | NUR ---
Pt's therapist, Abigail Vaughan, called for an update on pt's status and plan of care. Updated Abigail. Answered all questions. Per Abigail, "I am concerned and I feel vulnerable being her only care provider overseeing her suicidal ideations. I am happy to continue seeing her, and I think it is important she gets her evaluation in [place] with the orthopedic doctor because this shoulder injury is causing her a lot of harm and discouragement."
--- NOTE | 2018-10-13 10:35 | NUR ---
Pt resting on hospital bed sleeping. Pt has even chest rise and fall. NADN. Sitter near doorway in direct line of sight for observation. No needs expressed.
--- NOTE | 2018-10-13 10:35 | NUR ---
LATE NOTE ENTRY 0945: Pt requesting to get phone numbers from cell phone. cardiology technician assisted. Pt requesting to call family. Pt ambulates with steady gait and balance to phone with cardiology technician to make phone calls to family. Pt returned to room. NADN. No other needs requested. Sitter near doorway in direct line of sight for observation.
[2018-10-13] MEDS ORDERED: PROP10TA16 PO (10:51)
--- NOTE | 2018-10-13 10:58 | NUR ---
BERNARDOI (JERRY)CALLED, NOT AN [facility] PATIENT
--- NOTE | 2018-10-13 10:58 | NUR ---
Pt states, "I take propanolol 10 mg every morning." Updated to pt's med reconcilliation. Called [facility] to update on home med add to list.
--- NOTE | 2018-10-13 11:10 | NUR ---
[facility] doctor returned phone call. Updated [facility] doctor on pt's home medication list and EMAR PRN. [facility] doctor to update reconciled med list and EMAR prn. All questions answered.
--- NOTE | 2018-10-13 11:44 | NUR ---
[facility] TO EVAL. CONTACTED [facility] SPOKE WITH ASAEL Duarte @ [phone]
--- NOTE | 2018-10-13 11:57 | NUR ---
Pt sleeping on hospital bed. Three rails up for safety measures. Call light within reach. T.V. on. NADN. Sitter near doorway in direct line of sight for observation. No needs expressed at this time. Pt lunch tray ready and available when pt wakes.
--- NOTE | 2018-10-13 12:39 | NUR ---
Pt asleep on hospital bed. T.V. on. Pt has unlabored respirations with even chest rise and fall. NADN. Sitter near doorway in direct line of sight for observation. No needs experssed. Lunch tray avialble for pt when awake.
--- NOTE | 2018-10-13 14:23 | NUR ---
LATE NOTE FOR 1330: Pt requested to use restroom. Pt ambulated with Sitter.
--- NOTE | 2018-10-13 14:23 | NUR ---
Pt attemted to elope when walking with sitter. Sitter verbally redirected pt back to room. Pt provided medicaiton per EMAR. MEHTA. Sitter near doorway in direct line of sight for observation. No other needs expressed at this time.
--- NOTE | 2018-10-13 14:59 | NUR ---
Pt resting on hospital bed. Pt has unlabored respirations with even chest rise and fall. Pt pending telepsych consultation. Sitter near doorway in direct line of sight for observation.
--- NOTE | 2018-10-13 15:14 | NUR ---
Spoke to [facility] admitting doctor and provided update on psych eval. All questions answered.
--- NOTE | 2018-10-13 15:15 | NUR ---
Spoke to SOC to set up telepsych monitor in pt's room. Telepsych robot in pt's room.
--- NOTE | 2018-10-13 15:50 | NUR ---
LATE NOTE ENTRY FOR 0759: Pt provides verbal consent for ED staff to discuss plan of care and pt updates with pt's therapist Clement Hayes.
--- NOTE | 2018-10-13 15:55 | NUR ---
Abigail Vaughan, pt's therapist, called for update on pt's plan of care. Updated Abigail on plan of care. Abigail asked if ED could, "cancel patient's arrangements for travel to [place]." Abigail updated that the ED does not have the resources to handle patients personal travel arrangements.
--- NOTE | 2018-10-13 16:06 | NUR ---
Patient is resting comfortably in bed. Vital Signs within normal limits.
--- NOTE | 2018-10-13 17:14 | NUR ---
Pt attempted to elope through ambulace bay enterance. Sitter redirect pt verbally to room. Pt walked out of room without verbal notification to restroom. Pt closed door and locked door. EDRN unlocked door and kept bathroom door cracked open with EDRN at door for observation for pt safety.
--- NOTE | 2018-10-13 17:44 | NUR ---
PT EXITED ROOM AND WALKED UP TO THIS NURSE REQUESTING TO LEAVE. EDUCATION PROVIDED. PT STATED "I HAVE A FLIGHT TO CATCH, I NEED TO FUCKING SHOWER AND I NEED TO PACK." PT EDUCATED ON PLAN OF CARE. PT WALKED PAST RN AND WENT TO PT RESTROOM. PT THEN PROCEEDED TO LOCK DOOR. ANOTHER RN UNLOCKED BATHROOM DOOR AND PROVIDED EDUCATION AND SET LIMITS. PT FINISHED USING RESTROOM AND RETURNED TO ROOM. PT THEN REQUESTED HALDOL. SITTER OUTSIDE DOORWAY.
--- NOTE | 2018-10-13 17:50 | NUR ---
Called and spoke to [facility] admitting MD. Provided report from SOC MD on pt treatment and medication recommendations. All questions answered. [facility] admitting MD to place inpatient admit order for psychiatric admission as well as medication recommendations as listed in report from PETERSON SANTIAGO.
[2018-10-13] MEDS ORDERED: LORazepam 2 MG/ML, 1ML IVPush PRN (18:00)
[2018-10-13] MEDS ORDERED: LORazepam 0.5MG TABLET PO PRN (18:00)
--- NOTE | 2018-10-13 18:44 | NUR ---
Provided report to CORA River at [facility]. All questions answered. CORA River to call back to ED regading acceptance.
--- NOTE | 2018-10-13 18:45 | NUR ---
Pt resting on hospital bed. Sitter near doorway in direct line of sight for observation.
--- NOTE | 2018-10-13 18:58 | NUR ---
CORA River from [facility] returned phone call and stated pt is being accepted to facility. Throughput RN aware.
--- NOTE | 2018-10-13 19:09 | NUR ---
Provided bedside report to CORA Guzman. All questions answered. CORA Guzman to assume care of pt.
--- NOTE | 2018-10-13 19:28 | NUR ---
PT RESTING CALMLY IN BED. NO COMPLAINTS AT THIS TIME. PT TRAY TABLE CLEANED, PT GIVEN FRESH ICE WATER. PT MADE AWARE SHE WILL BE GOING TO [facility]. PT ASKED TO GO TO [facility], PT INFORNED SHE WAS ACCEPTED BY [facility]. PT SEEMS OK WITH THIS AT THIS TIME. PER SITTER, PT HAS ATTEMPTED TO LEAVE. SITTER ABLE TO REDIRECT PT TO STAY IN ROOM. WILL CONTINUE TO MONITOR.
--- NOTE | 2018-10-13 19:30 | NUR ---
MTM called on patients behalf
--- NOTE | 2018-10-13 19:44 | NUR ---
[facility] Auth# [id number]
--- NOTE | 2018-10-13 19:59 | NUR ---
PT HAS LEFT WITH [facility] TO [facility] WITH [facility].
[2018-10-13] MEDS ORDERED: OLANZAPINE 5 MG TABLET PO SCH (21:00)
[2018-10-13] MEDS ORDERED: ESCITALOPRAM 10MG TABLET PO SCH (21:00)
[2018-10-13] MEDS ORDERED: TRAZODONE 50MG TABLET PO SCH (21:00)
[2018-10-13] MEDS ORDERED: LURASIDONE HCL PO SCH (21:00)
== END 2018-10-13 19:59 | DRG 918 ==
LOC: ED 23:04 → EDIP 10-13 01:02
PROVIDERS: ADMIT Emergency Medicine; ATTEND Emergency Medicine
DX: T42.6X2A Poisoning by other antiepileptic and sedative-hypnotic drugs, intentional self-harm, initial encounter (principal); E66.9 Obesity, unspecified; E87.6 Hypokalemia; F10.129 Alcohol abuse with intoxication, unspecified; F31.9 Bipolar disorder, unspecified; G47.00 Insomnia, unspecified; K21.9 Gastro-esophageal reflux disease without esophagitis; T42.4X1A Poisoning by benzodiazepines, accidental (unintentional), initial encounter; Z88.5 Allergy status to narcotic agent; Z88.8 Allergy status to other drugs, medicaments and biological substances; Z91.018 Allergy to other foods; Z83.3 Family history of diabetes mellitus; Z82.49 Family history of ischemic heart disease and other diseases of the circulatory system; Z80.6 Family history of leukemia; Z87.891 Personal history of nicotine dependence; Z90.5 Acquired absence of kidney; Z90.49 Acquired absence of other specified parts of digestive tract; Z68.34 Body mass index [BMI] 34.0-34.9, adult; Y92.89 Other specified places as the place of occurrence of the external cause; T42.4X2A Poisoning by benzodiazepines, intentional self-harm, initial encounter; I10 Essential (primary) hypertension
CPT/HCPCS: 36415; 80053; 80307; 85025; 93005; 99285; J3486

== ENCOUNTER 2019-07-07 17:58 | Emergency (ER) | payer MEDICAID ==
[~2019-07-07] VITALS: Ht 165.1 cm; Wt 108.0 kg
[~2019-07-07 17:58] MED LIST changes: +MONT10TA11 PO; -MONT10TA9 PO; +PROP10TA16 PO
[2019-07-07 18:15] VITALS: BP 135/85
[2019-07-07] MEDS ORDERED: SODIUM CHLORIDE FLUSH 10ML SYR IVF ONE (18:30)
[2019-07-07 18:54] LABS: BASOPHILS # (AUTO) 0.01 x10^3/uL (0-0.1); BASOPHILS % (AUTO) 0 % (0-1); EOSINOPHILS # (AUTO) 0.11 x10^3/uL (0-0.4); EOSINOPHILS % (AUTO) 1 % (1-7); LYMPHOCYTES # (AUTO) 3.21 x10^3/uL (1-3.4); LYMPHOCYTES % (AUTO) 31 % (22-44); MD NO; MEAN CORPUSCULAR HEMOGLOBIN 32.1 pg (27.0-34.8); MEAN CORPUSCULAR HGB CONC 33.6 g/dL (32.4-35.8); MEAN CORPUSCULAR VOLUME 95.5 fL (80-100); MEAN PLATELET VOLUME 6.9 fL (7.4-10.4); MONOCYTES % (AUTO) 13 % (2-9); NEUTROPHILS # (AUTO) 5.63 x10^3/uL (1.8-6.8); NEUTROPHILS % (AUTO) 55 % (42-75); PLATELET COUNT 374 x10^3/uL (130-400); RED CELL DISTRIBUTION WIDTH 13.2 % (9.6-15.2)
[2019-07-07 18:56] LABS: ALBUMIN 3.3 g/dL (3.4-5.0); ANION GAP 4 mmol/L (5-15); CHLORIDE 98 mmol/L (98-107)
[2019-07-07 18:59] LABS: ALANINE AMINOTRANSFERASE 23 U/L (12-78); ALKALINE PHOSPHATASE 90 U/L (45-117); BILIRUBIN,TOTAL 1.5 mg/dL (0.2-1.0); CREATININE 0.87 mg/dL (0.55-1.02); TOTAL PROTEIN 8.3 g/dL (6.4-8.2)
[2019-07-07 19:29] LABS: CULTURE INDICATED? YES; MICROSCOPIC INDICATED
--- NOTE | 2019-07-07 22:07 | NUR ---
pt to room from lobby
--- NOTE | 2019-07-07 22:10 | NUR ---
not in lobby
== END 2019-07-07 23:08 ==
LOC: ED 23:02
DX: R10.32 Left lower quadrant pain (principal); R11.0 Nausea
CPT/HCPCS: 36415; 80053; 81001; 83690; 85025; 87086; 99283

== ENCOUNTER 2019-07-08 13:38 | Emergency (ER) | payer MEDICAID ==
[~2019-07-08] VITALS: Ht 165.1 cm; Wt 106.1 kg
[2019-07-08 14:12] LABS: BASOPHILS # (AUTO) 0.04 x10^3/uL (0-0.1); BASOPHILS % (AUTO) 0 % (0-1); EOSINOPHILS # (AUTO) 0.06 x10^3/uL (0-0.4); EOSINOPHILS % (AUTO) 1 % (1-7); LYMPHOCYTES # (AUTO) 2.33 x10^3/uL (1-3.4); LYMPHOCYTES % (AUTO) 27 % (22-44); MD NO; MEAN CORPUSCULAR HEMOGLOBIN 31.8 pg (27.0-34.8); MEAN CORPUSCULAR HGB CONC 33.6 g/dL (32.4-35.8); MEAN CORPUSCULAR VOLUME 94.7 fL (80-100); MEAN PLATELET VOLUME 7.3 fL (7.4-10.4); MONOCYTES % (AUTO) 9 % (2-9); NEUTROPHILS # (AUTO) 5.34 x10^3/uL (1.8-6.8); NEUTROPHILS % (AUTO) 62 % (42-75); PLATELET COUNT 367 x10^3/uL (130-400); RED BLOOD COUNT 5.13 x10^6/uL (3.82-5.3); RED CELL DISTRIBUTION WIDTH 13.1 % (9.6-15.2)
[2019-07-08 14:20] LABS: ALANINE AMINOTRANSFERASE 22 U/L (12-78); ALBUMIN 3.4 g/dL (3.4-5.0); ANION GAP 9 mmol/L (5-15); CALCIUM 8.9 mg/dL (8.5-10.1); CHLORIDE 101 mmol/L (98-107)
[2019-07-08 14:25] LABS: ALKALINE PHOSPHATASE 89 U/L (45-117); BILIRUBIN,TOTAL 0.9 mg/dL (0.2-1.0); TOTAL PROTEIN 8.4 g/dL (6.4-8.2)
[2019-07-08] MEDS ORDERED: HYDROmorphone 1 MG/ML, 1ML INJ ONE (14:30)
[2019-07-08] MEDS ORDERED: ONDANSETRON 2MG/ML, 2ML IVPush ONE (14:30)
[2019-07-08] MEDS ORDERED: SODIUM CHLORIDE FLUSH 10ML SYR IVF ONE (14:30)
[2019-07-08] MEDS ORDERED: HYDROmorphone 2 MG/ML, 1ML IVPush PRN (14:30)
[2019-07-08] MEDS ORDERED: ONDANSETRON 2MG/ML, 2ML ONE (14:30)
[2019-07-08 14:46] VITALS: BP 99/74
--- NOTE | 2019-07-08 15:50 | NUR ---
PAIN CONTROLLD TO 05/23 PROVIDER MADE AWARE VSS ON PALLIATIVE MEDICINE PHYSICIAN
--- NOTE | 2019-07-08 16:21 | NUR ---
ASSUMED CARE FOR DISCHARGE ONLY: Patient/Caregiver given discharge instructions and they have confirmed that they understand the instructions. Patient ambulatory with steady gait.
== END 2019-07-08 16:23 | disposition home or self-care (01) ==
LOC: ED 16:00
DX: K57.32 Diverticulitis of large intestine without perforation or abscess without bleeding (principal); R11.2 Nausea with vomiting, unspecified; R19.7 Diarrhea, unspecified; J45.909 Unspecified asthma, uncomplicated; I10 Essential (primary) hypertension; Z90.49 Acquired absence of other specified parts of digestive tract; Z90.5 Acquired absence of kidney
CPT/HCPCS: 36415; 74177; 80053; 84703; 85025; 96374; 96375; 99285; J1170; J2405

== ENCOUNTER 2019-11-25 17:41 | Inpatient (IN) | payer MEDICAID ==
[~2019-11-25] VITALS: Ht 165.1 cm; Wt 117.9 kg
--- NOTE | 2019-11-25 18:23 | NUR ---
MANAGER TRACK: PT WALKED BACK FROM LOBBY TO ROOM AT THIS TIME.
[2019-11-25] MEDS ORDERED: ONDANSETRON 2MG/ML, 2ML ONE (18:59)
[2019-11-25] MEDS ORDERED: HYDROmorphone 1 MG/ML, 1ML INJ ONE ×2 (18:59→19:32)
[2019-11-25 19:00] LABS: MEAN CORPUSCULAR HEMOGLOBIN 32.4 pg (27.0-34.8); MEAN CORPUSCULAR HGB CONC 33.5 g/dL (32.4-35.8); MEAN CORPUSCULAR VOLUME 96.5 fL (80-100); MEAN PLATELET VOLUME 7.8 fL (7.4-10.4); PLATELET COUNT 309 x10^3/uL (130-400); RED CELL DISTRIBUTION WIDTH 12.3 % (9.6-15.2)
[2019-11-25] MEDS ORDERED: SODIUM CHLORIDE FLUSH 10ML SYR IVF ONE (19:00)
[2019-11-25] MEDS ORDERED: ONDANSETRON 2MG/ML, 2ML IVPush ONE (19:00)
[2019-11-25] MEDS ORDERED: SODIUM CHLORIDE 0.9% 1,000ML IVBOLUS ONE (19:00)
[2019-11-25 19:03] LABS: MD YES
[2019-11-25 19:12] LABS: ALBUMIN 3.5 g/dL (3.4-5.0); ANION GAP 6 mmol/L (5-15); CALCIUM 9.3 mg/dL (8.5-10.1); CHLORIDE 98 mmol/L (98-107)
[2019-11-25] MEDS: HYDROmorphone 2 MG/ML, 1ML IVPush PRN ×2 (19:13→20:10)
[2019-11-25 19:18] LABS: ALANINE AMINOTRANSFERASE 27 U/L (12-78); ALKALINE PHOSPHATASE 83 U/L (45-117); BILIRUBIN,TOTAL 1.4 mg/dL (0.2-1.0); CREATININE 0.74 mg/dL (0.55-1.02); TOTAL PROTEIN 8.1 g/dL (6.4-8.2)
[2019-11-25 19:24] LABS: MICROSCOPIC INDICATED
[2019-11-25] MEDS ORDERED: OMNIPAQUE 350 MG/ML, 100ML BOTTLE ONE (19:42)
[2019-11-25 19:46] LABS: BAND#(MANUAL) 0.92 x10^3/uL; BANDS%(MANUAL) 5 % (0-7); LYMPH#(MANUAL) 2.56 x10^3/uL (1-3.4); LYMPHS% (MANUAL) 14 % (22-44); MONOS#(MANUAL) 1.83 x10^3/uL (0.3-2.7); MONOS% (MANUAL) 10 % (2-9); SEG#(MANUAL) 12.99 x10^3/uL (1.8-6.8); SEGS% (MANUAL) 71 % (42-75)
[2019-11-25 19:47] LABS: <PLATELET ESTIMATE> ADEQUATE; <PLT MORPHOLOGY> NORMAL PLT MORPH; <RBC MORPHOLOGY> NORMAL
[2019-11-25] MEDS ORDERED: POTASSIUM CHLORIDE 10% 40 MEQ/30 ML UDC PO ONE (20:00)
[2019-11-25] MEDS ORDERED: METRONIDAZOLE PMX 500MG/100ML 100 ML IV ONE (20:30)
[2019-11-25] MEDS ORDERED: CIPROFLOXACIN/PMX 400MG/200ML 200 ML IV ONE (20:30)
--- NOTE | 2019-11-25 20:31 | NUR ---
FAMILY AT BEDSIDE. 3P'S ADDRESSED.
[2019-11-25] MEDS ORDERED: METRONIDAZOLE PMX 500MG/100ML 100 ML ONE (20:46)
[2019-11-25] MEDS ORDERED: CIPROFLOXACIN/PMX 400MG/200ML 200 ML ONE (20:47)
[2019-11-25] MEDS ORDERED: SODIUM CHLORIDE FLUSH 10ML SYR IVF PRN (21:00)
--- NOTE | 2019-11-25 21:15 | NUR ---
Report received from CORA Lopez. This RN to assume care. Awaiting admit orders.
[2019-11-25] MEDS ORDERED: HYDROmorphone 2 MG/ML, 1ML IVPush PRN (21:30)
[2019-11-25] MEDS ORDERED: HYDROmorphone 2 MG/ML, 1ML ONE (21:31)
[2019-11-25] MEDS ORDERED: hydrALAzine 20 MG/ML, 1ML IVPush PRN (22:00)
[2019-11-25] MEDS ORDERED: ALBUTEROL HFA 90 MCG/SPRAY INH PRN (22:00)
[2019-11-25] MEDS ORDERED: HYDROCHLOROTHIAZIDE 25 MG TABLET PO PRN (22:00)
[2019-11-25] MEDS ORDERED: [UNRECOGNIZED DRUG - OTHER] PO (22:16)
--- NOTE | 2019-11-25 22:20 | NUR ---
Report given to CORA Le. Patient transferred to room 356.
[2019-11-25] MEDS: LACTATED RINGERS 1,000 ML IV SCH (22:58)
[2019-11-25] MEDS: PIPERACILLIN/TAZO/PMX 3.375GM 50 ML IV SCH (22:58)
[2019-11-25] MEDS: IBUPROFEN 600 MG TABLET PO PRN (22:59)
[2019-11-25] MEDS: ENOXAPARIN 40 MG/0.4 ML SQ SCH (22:59)
[2019-11-25] MEDS ORDERED: [UNRECOGNIZED DRUG - REMARK] MC SCH (23:00)
[2019-11-25 23:08] VITALS: BP 107/76
[2019-11-25] MEDS: HYDROCHLOROTHIAZIDE 25 MG TABLET PO SCH (23:51)
[2019-11-25] MEDS: PROPRANOLOL 10 MG TABLET PO SCH (23:56)
[2019-11-25] MEDS: ESCITALOPRAM 10MG TABLET PO SCH (23:56)
[2019-11-25] MEDS: BUSPIRONE 10 MG TABLET PO SCH (23:56)
[2019-11-26 02:19] VITALS: BP 107/74
[2019-11-26] MEDS: HYDROmorphone 2 MG/ML, 1ML IVPush PRN ×6 (02:38→23:18)
[2019-11-26] MEDS: PIPERACILLIN/TAZO/PMX 3.375GM 50 ML IV SCH ×4 (05:03→23:17)
[2019-11-26] MEDS: ACETAMINOPHEN 325 MG TABLET PO PRN (05:07)
[2019-11-26 05:25] LABS: MEAN CORPUSCULAR HEMOGLOBIN 32.1 pg (27.0-34.8); MEAN CORPUSCULAR HGB CONC 32.9 g/dL (32.4-35.8); MEAN CORPUSCULAR VOLUME 97.7 fL (80-100); MEAN PLATELET VOLUME 7.6 fL (7.4-10.4); PLATELET COUNT 284 x10^3/uL (130-400); RED BLOOD COUNT 4.55 x10^6/uL (3.82-5.3); RED CELL DISTRIBUTION WIDTH 12.4 % (9.6-15.2)
[2019-11-26 05:37] LABS: CHLORIDE 100 mmol/L (98-107)
[2019-11-26 05:41] LABS: ANION GAP 6 mmol/L (5-15); CALCIUM 8.8 mg/dL (8.5-10.1); CREATININE 0.73 mg/dL (0.55-1.02)
[2019-11-26] MEDS: LACTATED RINGERS 1,000 ML IV SCH (06:09)
[2019-11-26 06:21] LABS: BAND#(MANUAL) 0.16 x10^3/uL; BANDS%(MANUAL) 1 % (0-7); MD YES
[2019-11-26 06:22] LABS: <PLATELET ESTIMATE> ADEQUATE; <PLT MORPHOLOGY> NORMAL PLT MORPH; <RBC MORPHOLOGY> NORMAL; EOS#(MANUAL) 0.32 x10^3/uL (0.0-0.4); EOS% (MANUAL) 2 % (1-7); MONOS% (MANUAL) 10 % (2-9)
[2019-11-26 06:23] LABS: LYMPHS% (MANUAL) 20 % (22-44); SEGS% (MANUAL) 67 % (42-75)
[2019-11-26 06:51] VITALS: BP 114/80
[2019-11-26] MEDS: HYDROCHLOROTHIAZIDE 25 MG TABLET PO SCH ×2 (08:20→10:45)
[2019-11-26] MEDS: ALPRazolam 1MG TAB PO SCH (08:20)
[2019-11-26] MEDS: BUSPIRONE 10 MG TABLET PO SCH ×2 (08:20→21:01)
[2019-11-26] MEDS: PROPRANOLOL 10 MG TABLET PO SCH ×2 (08:21→21:01)
[2019-11-26] MEDS: IBUPROFEN 600 MG TABLET PO PRN (08:21)
[2019-11-26] MEDS ORDERED: BUSPIRONE 10 MG TABLET PO SCH (09:00)
[2019-11-26] MEDS ORDERED: PROPRANOLOL 10 MG TABLET PO SCH (09:00)
[2019-11-26] MEDS: POTASSIUM CHLORIDE 20 MEQ in LACTATED RINGERS 1,000 ML IV SCH ×2 (11:10→19:25)
[2019-11-26 14:13] VITALS: BP 107/61
[2019-11-26] MEDS: ONDANSETRON ODT 4 MG PO PRN ×2 (17:44→23:16)
[2019-11-26 19:31] VITALS: BP 103/71
[2019-11-26] MEDS ORDERED: ESCITALOPRAM 10MG TABLET PO SCH (21:00)
[2019-11-26] MEDS: ESCITALOPRAM 10MG TABLET PO SCH (21:00)
[2019-11-26] MEDS ORDERED: VRAYLAR 6 MG HOMEMEDPO SCH (21:00)
[2019-11-26] MEDS: ENOXAPARIN 40 MG/0.4 ML SQ SCH (23:17)
[2019-11-27 00:42] VITALS: BP 119/80
[2019-11-27] MEDS: POTASSIUM CHLORIDE 20 MEQ in LACTATED RINGERS 1,000 ML IV SCH (03:05)
[2019-11-27] MEDS: PIPERACILLIN/TAZO/PMX 3.375GM 50 ML IV SCH ×2 (05:04→10:35)
[2019-11-27] MEDS: ACETAMINOPHEN 325 MG TABLET PO PRN (05:07)
[2019-11-27 05:58] LABS: MEAN CORPUSCULAR HEMOGLOBIN 32.6 pg (27.0-34.8); MEAN CORPUSCULAR HGB CONC 33.6 g/dL (32.4-35.8); MEAN CORPUSCULAR VOLUME 97.1 fL (80-100); MEAN PLATELET VOLUME 8.8 fL (7.4-10.4); PLATELET COUNT 269 x10^3/uL (130-400); RED BLOOD COUNT 4.33 x10^6/uL (3.82-5.3); RED CELL DISTRIBUTION WIDTH 12.4 % (9.6-15.2)
[2019-11-27 05:59] LABS: ANION GAP 8 mmol/L (5-15); CALCIUM 8.4 mg/dL (8.5-10.1); CHLORIDE 95 mmol/L (98-107)
[2019-11-27 06:00] LABS: CREATININE 0.65 mg/dL (0.55-1.02)
[2019-11-27 06:24] LABS: MD SCAN
[2019-11-27 06:25] LABS: BASOPHILS # (AUTO) 0.06 x10^3/uL (0-0.1); BASOPHILS % (AUTO) 1 % (0-1); EOSINOPHILS # (AUTO) 0.04 x10^3/uL (0-0.4); EOSINOPHILS % (AUTO) 0 % (1-7); LYMPHOCYTES # (AUTO) 2.28 x10^3/uL (1-3.4); LYMPHOCYTES % (AUTO) 18 % (22-44); MONOCYTES # (AUTO) 1.08 x10^3/uL (0.2-0.8); MONOCYTES % (AUTO) 9 % (2-9); NEUTROPHILS # (AUTO) 9.01 x10^3/uL (1.8-6.8); NEUTROPHILS % (AUTO) 72 % (42-75)
[2019-11-27] MEDS: BUSPIRONE 10 MG TABLET PO SCH (07:39)
[2019-11-27] MEDS: PROPRANOLOL 10 MG TABLET PO SCH (07:40)
[2019-11-27] MEDS: HYDROmorphone 2 MG/ML, 1ML IVPush PRN (07:40)
[2019-11-27] MEDS: ALPRazolam 1MG TAB PO SCH (07:40)
[2019-11-27] MEDS: HYDROCHLOROTHIAZIDE 25 MG TABLET PO SCH (07:40)
[2019-11-27] MEDS ORDERED: HYDROcodone/APAP 5/325 TABLET PO PRN (08:00)
[2019-11-27] MEDS ORDERED: KETOROLAC 30 MG/1 ML IV PRN (08:00)
[2019-11-27 08:17] VITALS: BP 81/60
[2019-11-27] MEDS ORDERED: POTASSIUM CHLORIDE 20 MEQ in LACTATED RINGERS 1,000 ML IV SCH (09:00)
[2019-11-27] MEDS ORDERED: AMOX1TAB64 PO (11:11)
[2019-11-27] MEDS ORDERED: HYDR-3237 PO (11:11)
[2019-11-27 13:18] VITALS: BP 100/65
[2019-11-27] MEDS ORDERED: ENOXAPARIN 30 MG/0.3 ML SQ SCH (22:00)
== END 2019-11-27 18:09 | disposition home or self-care (01) | DRG 392 ==
LOC: ED 19:19 → EDIP 20:55 → 3N 22:23
PROVIDERS: ADMIT Family Medicine; ATTEND Family Medicine
DX: K57.32 Diverticulitis of large intestine without perforation or abscess without bleeding (principal); E87.1 Hypo-osmolality and hyponatremia; E87.6 Hypokalemia; I10 Essential (primary) hypertension; F31.9 Bipolar disorder, unspecified; D72.829 Elevated white blood cell count, unspecified; K57.90 Diverticulosis of intestine, part unspecified, without perforation or abscess without bleeding; E86.0 Dehydration; R82.81 Pyuria; J45.909 Unspecified asthma, uncomplicated; Z87.442 Personal history of urinary calculi; Z90.5 Acquired absence of kidney; Z90.49 Acquired absence of other specified parts of digestive tract; Z88.1 Allergy status to other antibiotic agents; Z88.5 Allergy status to narcotic agent
CPT/HCPCS: 36415; 74177; 80048; 80053; 81001; 83690; 83735; 84703; 85025; 87086; G0378; J0744; J1170; J1650; J2405; J2543; J3480; Q0162; Q9967; J7030; J7120